=== PATIENT | male | born 1960 | race Two or more races ===

== ENCOUNTER 2017-06-11 06:13 | Day surgery (SDC) | payer BC ==
[2017-06-11] VITALS (8 sets, daily range): BP systolic 132–169; BP diastolic 81–102
[~2017-06-11] VITALS: Ht 180.3 cm; Wt 67.1 kg
[~2017-06-11 06:13] MED LIST: NKM
--- NOTE | 2017-06-11 08:24 | Pre-Procedure Note/Attestation ---
Pre-Procedure Note/Attestation Complete Prior to Procedure Planned Procedure: not applicable Procedure Narrative: esophagogastroduodenoscopY AND COLONOSCOPY Indications for Procedure Pre-Operative Diagnosis: screning colon, GERD Attestation I attest that I discussed the nature of the procedure; its benefits; risks and complications; and alternatives (and the risks and benefits of such alternatives ), prior to the procedure, with the patient (or the patient's legal account service representative). I attest that, if there was a reasonable possibility of needing a blood transfusion, the patient (or the patient's legal account service representative) was given the [facility] standardized written summary, pursuant to the [place] Blood Safety Act ([place] Health and Safety Code # 1645, as amended). I attest that I re-evaluated the patient just prior to the surgery and that there has been no change in the patient's H&P, except as documented below: CHANCE CARSON Jun 11, 2017 08:24
--- NOTE | 2017-06-11 08:25 | Short Stay Surgery H&P ---
History of Present Illness History of Present Illness Chief Complaint screening colon, GERD HPI Adore Short is a 56 year old male who was admitted on for Colon Screening,Gerd Patient History Allergies: Coded Allergies: NO KNOWN DRUG ALLERGIES (Verified Allergy, 09/23/12) PAST MEDICAL HISTORY: Past Surgeries: Social History: Medication History Scheduled No Known Medications* (NKM - No Known Medications*), 0 ., (Reported) Review of Systems Cardiovascular: Reports: no symptoms Respiratory: Reports: no symptoms Skeletal: Reports: no symptoms Gastrointestinal: Reports: no symptoms Genitourinary: Reports: no symptoms Neurologic: Reports: no symptoms Endocrine: Reports: no symptoms Physical Exam Vital Signs Last Vital Signs Date Time Temp Pulse Resp B/P (MAP) Pulse Ox O2 Delivery O2 Flow Rate FiO2 06/11/17 06:50 98.6 54 19 132/81 97 Room Air Skin: normal HENT: normal Heart: normal Lungs: normal Abdomen: normal Extremities: normal Plan Plan of Care esophagogastroduodenoscopy and colonoscopy Final Diagnosis: Attestation Are the patient's medical conditions optimized for surgery? Attestation Response: yes CHANCE CARSON Jun 11, 2017 08:25
[2017-06-11] MEDS ORDERED: fentaNYL 100 mcg/2 mL IV ONE (08:30)
[2017-06-11] MEDS ORDERED: Midazolam 2mg/2ml Inj ONE (08:30)
[2017-06-11] MEDS ORDERED: Propofol 10mg/ml 20ml IV ONE (08:30)
[2017-06-11] MEDS ORDERED: LR 1000ml ONE (08:30)
[2017-06-11] MEDS ORDERED: Morphine Sulfate 10mg/ml Inj ONE (08:30)
--- NOTE | 2017-06-11 08:52 | Endoscopy Procedure Note ---
Endoscopy Procedure Note Indication for Procedure: screening colon, GERD, elevated CEA Procedures Performed: EGD, colonoscopy Operative Findings/Diagnosis: one polyp, diverticulosis Specimen: yes Pt Tolerated Procedure Well: Yes Estimated Blood Loss: none Anesthesiologist: see chart Anesthesia: MAC Implant(s) used?: No 50 yrs or older w/o bx or poly: No 10yrs. F/U not recommended: Yes If not recommended, why?: Above average risk 10 yrs. F/U needed: Yes 18 years or older w/prev. colo: Yes <3yrs. since last colonoscopy: No CHANCE CARSON Jun 11, 2017 08:52
--- NOTE | 2017-06-11 09:09 | Anethesia Preoperative Eval ---
Anesthesia Pre-op PMH/ROS General Date of Evaluation: Jun 11, 2017 Time of Evaluation: 09:02 ASA Score: ASA 2 Mallampati Score Class I : Soft palate, uvula, fauces, pillars visible Class II: Soft palate, uvula, fauces visible Class III: Soft palate, base of uvula visible Class IV: Only hard plate visible Mallampati Classification: Class I Anesthesia History: none Family History: no anesthesia problems Allergies: Coded Allergies: NO KNOWN DRUG ALLERGIES (Verified Allergy, Unknown, 06/11/17) Medications: see eMAR Anesthesia Pre-op Phys. Exam Physician Exam Last Vital Signs Date Time Temp Pulse Resp B/P (MAP) Pulse Ox O2 Delivery O2 Flow Rate FiO2 06/11/17 06:50 98.6 54 19 132/81 97 Room Air Constitutional: NAD Neurologic: CN 2-12 intact Cardiovascular: RRR Respiratory: CTA Airway Exam Mallampati Score: Class I MO: full ROM: full Teeth: intact James Ramirez M.D. Jun 11, 2017 09:09
--- NOTE | 2017-06-11 09:10 | Immediate Post-Op Evaluation ---
Immediate Post-Op Evalulation Immediate Post-Op Evalulation Procedure: EGD/Colonoscopy Date of Evaluation: Jun 11, 2017 Time of Evaluation: 09:01 IV Fluids: 500 Blood Products: 0 Estimated Blood Loss: 0 Urinary Output: 0 Blood Pressure Systolic: 123 Blood Pressure Diastolic: 63 Pulse Rate: 68 Respiratory Rate: 16 O2 Sat by Pulse Oximetry: 99 Temperature (Fahrenheit): 98 Pain Score (1-10): 0 Nausea: No Vomiting: No Patient Status: awake, patent Hydration Status: adequate Given Within 1 Hr of Incision: James Tobin M.D. Jun 11, 2017 09:10
--- NOTE | 2017-06-11 09:12 | 48 Hour Post Anesthesia Eval ---
Post Anesthesia Evaluation Procedure: EGD/Colonoscopy Date of Evaluation: Jun 13, 2017 Time of Evaluation: 08:00 Blood Pressure Systolic: 123 0: 65 Pulse Rate: 80 Respiratory Rate: 14 Temperature (Fahrenheit): 98 O2 Sat by Pulse Oximetry: 99 Airway: patent Nausea: No Vomiting: No Pain Intensity: 0 Hydration Status: adequate Mental Status/LOC: patient returned to baseline Follow-up care needed: patient intructions given James Ramirez M.D. Jun 11, 2017 09:12
[2017-06-11] MEDS ORDERED: Metoclopramide 10mg/2ml Inj IVP PRN (09:15)
[2017-06-11] MEDS ORDERED: fentaNYL 100 mcg/2 mL IV PRN (09:15)
--- NOTE | 2017-06-11 19:15 | Procedure Note ---
DATE OF PROCEDURE: 06/11/2017 SURGEON: Zack Vogel M.D. PROCEDURE: Upper endoscopy with biopsy and colonoscopy and snare polypectomy. ANESTHESIOLOGIST: Please see anesthesia sheet. INSTRUMENT: Olympus adult flexible upper endoscope and colonoscope. INDICATION: Elevated CEA and history of colonic polyp. REASON FOR PROCEDURE: The procedure, risks, benefits, and possible consequences, including hemorrhage, aspiration, perforation and infection, and alternative treatments, were explained to the patient/legal guardian by Dr. Zack Vogel and the patient/legal guardian understood and accepted these risks. DESCRIPTION OF PROCEDURE: After informed consent was obtained and the patient was adequately sedated, Olympus upper endoscope was advanced from mouth into the second portion of duodenum and retroflexion was performed in the stomach. The patient had evidence of small hiatal hernia and evidence of minimum distal esophagitis. There were some inflammatory changes of distal esophagus, which was biopsied to rule out eosinophilic esophagitis. In the stomach, there was no evidence of diffuse gastritis. Random biopsy from antrum was obtained to rule out H. pylori infection. At this time, the arm was retrieved and the patient was turned over for colonoscopy. First, a rectal exam was performed, which was normal. Then, the scope was advanced from the rectum into the cecum, documented by appendiceal orifice, ileocecal valve, and right upper quadrant palpation. Quality of prep was very good. The patient had one polyp about 5 mm in the ascending colon, removed with the cold snare polypectomy technique. There is no further polyp seen in this examination. The patient had evidence of some diverticulosis in the left colon. Retroflexion of rectum showed evidence of internal hemorrhoids. The patient tolerated the procedure well without any complication. SUMMARY OF FINDINGS: 1. Distal esophagitis. See above for details. 2. Gastritis, status post biopsy. 3. One colonic polyp removed. See above for details. 4. Diverticulosis. 5. Internal hemorrhoids. RECOMMENDATIONS: Follow up biopsy results and treat accordingly. We will recommend a repeat colonoscopy in 5 years. I want to thank Dr. Zack Raymundo for this kind referral. Zack Vogel M.D. DR: AGATHA JOB#: [id number] CC: Zack Raymundo M.D.; Fax#: [phone]
--- NOTE | 2017-06-15 15:49 | Cardiology Report ---
APPROVED REPORT EKG Measurement Heart [id number] CO [id number] Sinus bradycardia with sinus arrhythmia Otherwise normal ECG
== END 2017-06-11 09:50 | disposition home or self-care (01) ==
LOC: GAS 06:13 → EDBD 08:00 → GAS 09:50
DX: Z12.11 Encounter for screening for malignant neoplasm of colon (principal); R97.0 Elevated carcinoembryonic antigen [CEA]; D12.2 Benign neoplasm of ascending colon; K57.30 Diverticulosis of large intestine without perforation or abscess without bleeding; K64.8 Other hemorrhoids; Z86.010 Personal history of colon polyps; K21.9 Gastro-esophageal reflux disease without esophagitis; K44.9 Diaphragmatic hernia without obstruction or gangrene; K20.9 Esophagitis, unspecified; K29.50 Unspecified chronic gastritis without bleeding
CPT/HCPCS: 43239; 45385; 93005; J2250; J2270; J2704; J3010; J7120; 94003; 94150